=== PATIENT | male | born 1965 | race Caucasian/White ===

== ENCOUNTER 2021-05-23 06:17 | Day surgery (SDC) | payer OTHER, SELFPAY ==
[2021-05-04 10:03] VITALS: BMI 22.8
--- NOTE | 2021-05-19 08:01 | MHC.SHP ---
Pre-Procedural Eval Section A Date of Service: 05/19/21 The patient is an INPATIENT: No Changes since office visit: No Cold of Flu in the past 2 weeks, No New Medical Problems, No Changes in Medication and No Patient answered all questions The History & Physical has been completed within 30 days and I have reviewed it.: Yes Section B Chief Complaint: cataract left eye Allergies: Allergies Allergy/AdvReac Type Severity Reaction Status Date / Time No Known Allergies Allergy Verified 05/04/21 09:56 Plan Diagnosis/Plan: Unchanged I have reviewed the history and physical and performed a pertinent physical examination on my patient. No changes have occurred unless specified.
--- NOTE | 2021-05-20 08:23 | P.CONAN_ITS ---
Documented by User: Torri Barger NP 05/20/21 08:24 HPI - Anesthesia Eval Consult details Narrative: 55yo M for Left Cataract Extraction IOL Insertion No prev cataract on record PCP cleared [facility] Past Medical History Medical History (Updated 05/06/21 @ 08:44 by Venita Arroyo, RN) Environmental allergies Headache ALLY (obstructive sleep apnea) Surgical History Surgical History (Updated 05/04/21 @ 09:56 by Ventia Arroyo, RN) History of appendectomy Social History Social History Are you a primary acute care physician to a significant other at home: No Do you presently have visiting nurse or other home services: No Patient Tobacco Use Status: Never used Tobacco Use of substances other than those prescribed or required for medical reasons: No Have you been hit, kicked, punched, or otherwise hurt by someone within the past year? If so, by whom?: No Are you DNR?: No Advance Directives: No Advance Directives Information Provided: No Advance Directives on File: No Recently lost weight without trying: No Eating poorly because of decreased appetite: No Nutrition Risks: No Nutritional Risk Poor oral hygiene: No Meds Allergies Allergy/AdvReac Type Severity Reaction Status Date / Time No Known Allergies Allergy Verified 05/04/21 09:56 Home Medications Medication Instructions Recorded Confirmed Last Taken Type acetaminophen 325 mg tablet 650 mg PO Q6H PRN 05/04/21 05/04/21 Unknown History (Tylenol) wozoaovstk-qisaddymaixcx-rgoeloik 1 cap PO BID 05/04/21 05/04/21 Unknown History 50 mg-300 mg-40 mg capsule Exam Exam Date and Time: May 20, 2021 0823 Height,Weight and Vital Signs: Height 5 ft 8 in Weight 68.039 kg Assessment and Plan Assessment Anesthesia Assessment: Chart Reviewed Documented by User: Pato Campos MD 05/23/21 06:56 [facility] Past Medical History Medical History (Updated 05/06/21 @ 08:44 by Venita Arroyo RN) Environmental allergies Headache ALLY (obstructive sleep apnea) Family History Family history of problems with anesthesia: No Surgical History Surgical History (Updated 05/04/21 @ 09:56 by Venita Arroyo RN) History of appendectomy History of Problems with Anesthesia: No Social History Social History Are you a primary acute care physician to a significant other at home: No Do you presently have visiting nurse or other home services: No Patient Tobacco Use Status: Never used Tobacco Use of substances other than those prescribed or required for medical reasons: No Have you been hit, kicked, punched, or otherwise hurt by someone within the past year? If so, by whom?: No Are you DNR?: No Advance Directives: No Advance Directives Information Provided: No Advance Directives on File: No Recently lost weight without trying: No Eating poorly because of decreased appetite: No Nutrition Risks: No Nutritional Risk Poor oral hygiene: No Meds Allergies Allergy/AdvReac Type Severity Reaction Status Date / Time No Known Allergies Allergy Verified 05/04/21 09:56 Home Medications Medication Instructions Recorded Confirmed Last Taken Type acetaminophen 325 mg tablet 650 mg PO Q6H PRN 05/04/21 05/04/21 Unknown History (Tylenol) gosubgpcqk-dwwqcbiumbrtk-naciylbl 1 cap PO BID 05/04/21 05/04/21 Unknown History 50 mg-300 mg-40 mg capsule Exam Airway Mallampati Class: II TM Dist: >3cm Neck ROM: Full Loose/Missing/Broken Teeth: No Heart: rrr+[id number] Lungs: cta b/l Assessment and Plan Assessment Anesthesia Assessment: Anesthesia Plan Discussed Final Anesthetic Review Family History of Problems with Anesthesia: No History of Problems with Anesthesia: No NPO: Yes ASA Class: II Final Preanesthetic Review: No Changes in Pt Med Stat, Meds/Allgs Chart Reviewed, Consent Obtained/Reviewed and Anes Risks/Benef Reviewed Patient Risk: Low Procedure Risk: Low Assessment/Block/Sedation in SS: Assess/Block/Sedation-SS Anesthetic Plan Anesthetic Plan: MAC: and Agree w/ Assess. and Plan Disposition: Standard PACU
[2021-05-23 06:32] VITALS: BP 114/74; PULSE 72; RESP 16; TEMP 36.5; O2SAT 98
[2021-05-23] MEDS: Tropicamide 1 % Ophth Sol 3 ML BTL 1 DROP EYE-RIGHT ×3 (06:48→06:54)
[2021-05-23] MEDS: Tetracaine HCl/PF 0.5% Oph Sol 4 ML DROPS 1 DROP EYE-RIGHT (06:48)
[2021-05-23] MEDS: Phenylephrine HCL 2.5% Oph SoL 2 ML BOTTLE 1 DROP EYE-RIGHT ×3 (06:50→06:56)
[2021-05-23] MEDS: Lactated Ringers 500 ML 50 ML IV (06:57)
[2021-05-23 07:49] VITALS: BP 109/63; PULSE 60; RESP 16; TEMP 36.8; O2SAT 95
--- NOTE | 2021-05-23 07:49 | HO.PNOPHT ---
Ophthalmology Procedure Procedure Date of Service: 05/23/21 Ophthalmology Viscoelastic: Healon Duet Dual Pack Pro Ophthalmology Lenses: TECNIS MC3850 (20.5) Procedure Notes: PREOPERATIVE DIAGNOSIS: Decreased visual acuity left eye secondary to cataract POSTOPERATIVE DIAGNOSIS: Same PROCEDURE: Left cataract extraction with intraocular lens insertion SURGEON: Gómez Sesay M.D. ANESTHESIA: Topical/MAC ESTIMATED BLOOD LOSS: None COMPLICATIONS: None After obtaining informed consent, the patient was brought to the operation room suite and placed in the supine position. After adequate sedation per anesthesia, topical drops of Tetracaine were given to the left eye. The eye was then prepped and draped in the usual sterile fashion. The operating room microscope was then positioned over the operative eye and a lid speculum placed. A paracentesis was created. Viscoelastic was then instilled into the anterior chamber. A three plane incision was then created temporally, utilizing a 2.85 mm keratome. Capsulotomy forceps were then utilized to create a circular tear capsulotomy. Hydrodissection and hydrodelineation were carried out until adequate mobilization of the nucleus occurred. Phacoemulsification was then utilized to remove the dense central nucleus followed by removal of the cortical material utilizing the automated aspiration irrigation unit. Viscoat elastic was instilled into the posterior capsular bag followed by placement of a posterior chamber intraocular lens without difficulty. The residual Viscoat elastic was then removed utilizing the automated IA machine. The wound was check and found to be watertight. The patient tolerated the procedure well and the lid speculum was removed. Intracameral injection of Vigamox 0.1 mL followed by a subtenon injection of Kenalog-40 0.2 mL were administered. The patient will be seen in the a.m.
== END 2021-05-23 08:07 | disposition home or self-care (01) ==
PROVIDERS: PCP Family Medicine; Visit Provider Ophthalmology
PROC: (CPT 66985; principal; 2021-05-23 08:30)
DX: H25.12 Age-related nuclear cataract, left eye (principal); H52.4 Presbyopia; Z83.511 Family history of glaucoma; G47.33 Obstructive sleep apnea (adult) (pediatric); G43.711 Chronic migraine without aura, intractable, with status migrainosus; J30.2 Other seasonal allergic rhinitis; Z79.899 Other long term (current) drug therapy
CPT/HCPCS: 66984; J2250; J3010; J3300; V2632

== ENCOUNTER 2021-05-30 06:21 | Day surgery (SDC) | payer OTHER, SELFPAY ==
[2021-05-04 09:58] VITALS: BMI 22.8
--- NOTE | 2021-05-05 08:03 | MHC.SHP ---
Pre-Procedural Eval Section A Date of Service: 05/05/21 The patient is an INPATIENT: No Changes since office visit: No Cold of Flu in the past 2 weeks, No New Medical Problems, No Changes in Medication and No Patient answered all questions Section B Chief Complaint: cataract right eye Allergies: Allergies Allergy/AdvReac Type Severity Reaction Status Date / Time No Known Allergies Allergy Verified 05/04/21 09:56 Plan Diagnosis/Plan: Unchanged I have reviewed the history and physical and performed a pertinent physical examination on my patient. No changes have occurred unless specified.
--- NOTE | 2021-05-26 08:22 | MHC.SHP ---
Pre-Procedural Eval Section A Date of Service: 05/26/21 The patient is an INPATIENT: No Changes since office visit: No Cold of Flu in the past 2 weeks, No New Medical Problems, No Changes in Medication and No Patient answered all questions The History & Physical has been completed within 30 days and I have reviewed it.: Yes Section B Chief Complaint: cataract right eye Allergies: Allergies Allergy/AdvReac Type Severity Reaction Status Date / Time No Known Allergies Allergy Verified 05/04/21 09:56 Plan Diagnosis/Plan: Unchanged I have reviewed the history and physical and performed a pertinent physical examination on my patient. No changes have occurred unless specified.
--- NOTE | 2021-05-26 12:44 | HO.ANESPROP2 ---
Documented by User: Torri Barger NP 05/26/21 12:45 HPI - Anesthesia Eval Consult details Narrative: 55yo M for Right Cataract Extraction IOL Insertion PCP cleared Left eye 05/23/21 with MAC: Fent 50, Midaz 2 PMFSH Past Medical History Medical History (Updated 05/06/21 @ 08:44 by Venita Arroyo, ADY) Environmental allergies Headache ALLY (obstructive sleep apnea) Family History Family history of problems with anesthesia: No Surgical History Surgical History (Updated 05/04/21 @ 09:56 by Venita Arroyo RN) History of appendectomy History of Problems with Anesthesia: No Social History Social History Are you a primary rn transitional care to a significant other at home: No Do you presently have visiting nurse or other home services: No Patient Tobacco Use Status: Never used Tobacco Use of substances other than those prescribed or required for medical reasons: No Have you been hit, kicked, punched, or otherwise hurt by someone within the past year? If so, by whom?: No Are you DNR?: No Advance Directives: No Advance Directives Information Provided: No Advance Directives on File: No Recently lost weight without trying: No Eating poorly because of decreased appetite: No Nutrition Risks: No Nutritional Risk Poor oral hygiene: No Meds Allergies Allergy/AdvReac Type Severity Reaction Status Date / Time No Known Allergies Allergy Verified 05/04/21 09:56 Home Medications Medication Instructions Recorded Confirmed Last Taken Type acetaminophen 325 mg tablet 650 mg PO Q6H PRN 05/04/21 05/04/21 Unknown History (Tylenol) wpqurrwpuc-ncvbjhhnubaxm-tclwfscq 1 cap PO BID 05/04/21 05/04/21 Unknown History 50 mg-300 mg-40 mg capsule Exam Exam Date and Time: May 26, 2021 1244 Height,Weight and Vital Signs: Height 5 ft 8 in Weight 68.039 kg Assessment and Plan Assessment Anesthesia Assessment: Chart Reviewed Final Anesthetic Review Family History of Problems with Anesthesia: No History of Problems with Anesthesia: No Documented by User: Kailash Degroot MD 05/30/21 08:42 [facility] Past Medical History Medical History (Updated 05/06/21 @ 08:44 by Venita Arroyo, RN) Environmental allergies Headache ALLY (obstructive sleep apnea) Surgical History Surgical History (Updated 05/04/21 @ 09:56 by Venita Arroyo, RN) History of appendectomy Social History Social History Are you a primary rn transitional care to a significant other at home: No Do you presently have visiting nurse or other home services: No Patient Tobacco Use Status: Never used Tobacco Use of substances other than those prescribed or required for medical reasons: No Have you been hit, kicked, punched, or otherwise hurt by someone within the past year? If so, by whom?: No Are you DNR?: No Advance Directives: No Advance Directives Information Provided: No Advance Directives on File: No Recently lost weight without trying: No Eating poorly because of decreased appetite: No Nutrition Risks: No Nutritional Risk Poor oral hygiene: No Meds Allergies Allergy/AdvReac Type Severity Reaction Status Date / Time No Known Allergies Allergy Verified 05/04/21 09:56 Home Medications Medication Instructions Recorded Confirmed Last Taken Type acetaminophen 325 mg tablet 650 mg PO Q6H PRN 05/04/21 05/04/21 Unknown History (Tylenol) wpahphqlbo-iyarqpiypyqtm-tftfihpj 1 cap PO BID 05/04/21 05/04/21 Unknown History 50 mg-300 mg-40 mg capsule Exam Airway Mallampati Class: II TM Dist: >3cm Neck ROM: Full Assessment and Plan Assessment Anesthesia Assessment: Anesthesia Plan Discussed Final Anesthetic Review NPO: Yes ASA Class: II Final Preanesthetic Review: No Changes in Pt Med Stat, Meds/Allgs Chart Reviewed, Consent Obtained/Reviewed and Anes Risks/Benef Reviewed Patient Risk: Low Procedure Risk: Low Anesthetic Plan Anesthetic Plan: MAC: Disposition: Standard PACU
[2021-05-30 06:31] VITALS: BP 126/73; PULSE 68; RESP 17; TEMP 36.6; O2SAT 98
[2021-05-30] MEDS: Tetracaine HCl/PF 0.5% Oph Sol 4 ML DROPS 1 DROP EYE-RIGHT (06:39)
[2021-05-30] MEDS: Lactated Ringers 500 ML 50 ML IV (06:39)
[2021-05-30] MEDS: Tropicamide 1 % Ophth Sol 3 ML BTL 1 DROP EYE-RIGHT ×3 (06:40→06:41)
[2021-05-30] MEDS: Phenylephrine HCL 2.5% Oph SoL 2 ML BOTTLE 1 DROP EYE-RIGHT ×3 (06:40→06:41)
--- NOTE | 2021-05-30 06:48 | PC.NURSE ---
verbalized understanding of d/c
--- NOTE | 2021-05-30 08:20 | HO.PNOPHT ---
Ophthalmology Procedure Procedure Date of Service: 05/30/21 Ophthalmology Viscoelastic: Geraldine Cloudt Dual Pack Pro Ophthalmology Lenses: TECMOY [id number] (20) Procedure Notes: PREOPERATIVE DIAGNOSIS: Decreased visual acuity right eye secondary to cataract POSTOPERATIVE DIAGNOSIS: Same PROCEDURE: Right cataract extraction with intraocular lens insertion SURGEON: Gómez Sesay M.D. ANESTHESIA: Topical/MAC ESTIMATED BLOOD LOSS: None COMPLICATIONS: None After obtaining informed consent, the patient was brought to the operating room suite and placed in the supine position. After adequate sedation per anesthesia, topical drops of Tetracaine were given to the right eye. The eye was then prepped and draped in the usual sterile fashion. The operating room microscope was then positioned over the operative eye and a lid speculum placed. A paracentesis was created. Viscoelastic was then instilled into the anterior chamber. A three plane incision was then created temporally, utilizing a 2.85 mm keratome. Capsulotomy forceps were then utilized to create a circular tear capsulotomy. Hydrodissection and hydrodelineation were carried out until adequate mobilization of the nucleus occurred. Phacoemulsification was then utilized to remove the dense central nucleus followed by removal of the cortical material utilizing the automated aspiration irrigation unit. Viscoelastic was instilled into the posterior capsular bag followed by placement of a posterior chamber intraocular lens without difficulty. The residual Viscoelastic was then removed utilizing the automated IA machine. The wound was checked and found to be watertight. The patient tolerated the procedure well and the lid speculum was removed. Intracameral injection of Vigamox 0.1 mL followed by a subtenon injection of Kenalog-40 0.2 mL were administered. The patient will be seen in the a.m.
[2021-05-30 08:59] VITALS: BP 121/72; PULSE 59; RESP 16; TEMP 36.3; O2SAT 96
== END 2021-05-30 09:09 | disposition home or self-care (01) ==
LOC: HO.SSS 06:22
PROVIDERS: PCP Family Medicine; Visit Provider Ophthalmology
PROC: (CPT 66985; principal; 2021-05-30 08:30)
DX: H25.11 Age-related nuclear cataract, right eye (principal); H52.4 Presbyopia; J30.2 Other seasonal allergic rhinitis; G47.33 Obstructive sleep apnea (adult) (pediatric)
CPT/HCPCS: 66984; J2250; J3010; J3300; V2632